=== PATIENT | female | born 1995 | race Caucasian/White ===

== ENCOUNTER 2023-05-08 10:59 | Emergency (ER) | payer BC, SELFPAY ==
[2023-05-08 11:05] VITALS: BP 136/83; PULSE 80; RESP 18; TEMP 36.9; O2SAT 99; BMI 62.6
--- NOTE | 2023-05-08 11:10 | EX.ED.UPPERE ---
HPI History of Present Illness Chief Complaint: Upper Extremity Injury PFS PFS Medical History no medical history Home Medications doxycycline monohydrate 100 mg capsule 100 mg PO BID 5 days #10 CAPSULES 05/08/23 [Rx Last Taken Unknown] Allergy/AdvReac Type Severity Reaction Status Date / Time amoxicillin Allergy Intermediate Rash Verified 05/08/23 11:05 azithromycin Allergy Intermediate Rash Verified 05/08/23 11:05 cefdinir Allergy Intermediate Rash Verified 05/08/23 11:05 cephalexin [From Keflex] Allergy Intermediate Rash Verified 05/08/23 11:05 clarithromycin Allergy Intermediate Rash Verified 05/08/23 11:05 clindamycin Allergy Intermediate Rash Verified 05/08/23 11:05 erythromycin base Allergy Intermediate Rash Verified 05/08/23 11:05 Penicillins Allergy Intermediate Rash Verified 05/08/23 11:05 sulfamethoxazole Allergy Intermediate Rash Verified 05/08/23 11:05 [From Bactrim] tetracycline Allergy Intermediate Rash Verified 05/08/23 11:05 trimethoprim [From Bactrim] Allergy Intermediate Rash Verified 05/08/23 11:05 Surgical History no surgical history EXAM Physical Exam Const Vital Signs: 05/08/23 11:05 Temperature 98.4 F Temperature Source Temporal Pulse Rate 80 Respiratory Rate 18 Blood Pressure 136/83 H Blood Pressure Mean 100 Pulse Ox 99 Oxygen Delivery Method Room Air MDM MDM MDM Narrative Medical decision making narrative: HISTORY OF PRESENT ILLNESS: 27-year-old female here with concern for injury to her right middle and ring finger. States she dropped a 300 pound wrench on the involved areas no severe right third digit swelling and pain. REVIEW OF SYSTEMS: Pertinent positives: Hand pain, numbness Pertinent negatives: Arm pain, wrist pain, elbow pain PHYSICAL EXAM: Nursing triage notes reviewed, Vital signs reviewed Constitutional: please see mdm Extremities: There is diffuse swelling over the tip of the third digit of the right hand. There is no obvious open fracture, nail is intact there is no subungual hematoma. There is exquisite tenderness palpation over the distal tip of the right third digit. There is intact flexion of the profundus and superficialis tendons although flexion of the finger is limited secondary to pain and swelling. Neuro: Intact 5/5 strength with ok sign (median), intact finger abduction (ulnar) intact wrist extension (radial n). Intact sensation in the radial, ulnar, and median nerve distributions. Skin: No evidence of open fracture MEDICAL DECISION MAKING: Chief Complaint: Ring and middle finger pain External records reviewed: No recent advanced imaging of the involved extremity Factors affecting care: none Social determinants of health: none History obtained from others: none Consults: none [facility] Narrative: The patient was hemodynamically stable, afebrile, nontoxic-appearing. Right upper extremity is neurovascularly intact. I considered the following differential diagnosis: Finger fracture, finger contusion ALL IMAGES (IF OBTAINED) HAVE BEEN PERSONALLY REVIEWED AND INTERPRETED BY MYSELF. I obtained an x-ray (read and reviewed by myself) of the right hand which showed evidence of fractures of the distal third and fourth phalanx. Applied finger splint. Gave strict return precautions. Gave Prophylactic antibiotics given soled appearance of the patient's fingers, redness and concern for development of infection. The patient and/or family, caregivers express understanding. The patient and/or family, caregivers agrees with the plan. Shared decision making: I will have a discussion with the patient and or visitors regarding risk/benefits of further testing or admission. They will be made aware of of the risk/benefits inherent in this decision they will be given the opportunity to voice understanding. Total critical care time today provided was at least 0 minutes. This excludes separately billable procedures. Critical care time (if documented) is secondary to the patient having high probability of clinically significant/life threatening deterioration in the patient's condition which required my urgent intervention. Impression: 1. Distal third and fourth phalanx fractures and right hand Dispo: Discharge Discharge Plan Triage Chief Complaint: Upper Extremity Injury ED Provider: Justin Estrella Dx/Rx/DC Orders Instructions: ED Fracture, Finger, Closed Prescriptions: New doxycycline monohydrate 100 mg capsule 100 mg PO BID 5 Days Qty: 10 0RF Stand Alone Forms: ED Work / School Excuse Primary Care Provider: Care Physician,No Primary Referrals: Alberto Coelho MD [Med Staff - Lehr Attendant] - Activity Restrictions/Additional Instructions: Thank you for trusting us with your care today! Please take Tylenol (2 pills, 650 mg), ibuprofen (2 pills, 400 mg) every 6 hours as needed for pain and fever control. Please use ice for further pain control. Please return to the emergency department if your symptoms change or worsen. Specifically develop redness, increasing pain, white-yellow discharge. Please follow with your primary care physician for further outpatient evaluation and management. Disposition Disposition: Home, Self Care
--- NOTE | 2023-05-08 11:31 | RAD_ITS ---
STUDY: X-RAY - RIGHT HAND, ATTENTION THIRD FINGER REASON FOR EXAM: Female, 27 years old. Right 3rd digit pain TECHNIQUE: 3 view(s) of the finger were obtained. COMPARISON: None. FINDINGS: There are acute, comminuted, minimally displaced fractures in the distal david of the distal third and fourth phalanges with soft tissue swelling. No other demonstrated fractures, joint spaces well-preserved. RAD/Finger(s) Min 2 Views IMPRESSION: Acute minimally displaced fractures in the distal david of the distal third and fourth phalanges with soft tissue swelling Electronically Signed: Jr Khoury MD at 11:59 EST ,
[2023-05-08] MEDS: Doxycycline 100 MG CAPSULE PO (12:14)
[2023-05-08] MEDS: oxyCODONE 5 MG Tablet PO (12:15)
--- NOTE | 2023-05-08 12:15 | ED.RN ---
bar scanner not working after multi attempts of redocking scanner.
== END 2023-05-08 12:17 | disposition home or self-care (01) ==
PROVIDERS: Emergency Provider Emergency Medicine; Visit Provider Emergency Medicine
DX: S62.632A Displaced fracture of distal phalanx of right middle finger, initial encounter for closed fracture (principal); S62.634A Displaced fracture of distal phalanx of right ring finger, initial encounter for closed fracture; X58.XXXA Exposure to other specified factors, initial encounter
CPT/HCPCS: 73140; 99282

== ENCOUNTER 2023-06-30 22:48 | Emergency (ER) | payer BC, SELFPAY ==
[2023-06-30 22:49] VITALS: BP 141/92; PULSE 77; RESP 18; TEMP 35.7; O2SAT 99
--- NOTE | 2023-06-30 23:10 | CT_ITS ---
INDICATION: fall, head trauma EXAMINATION: CT Head or Brain W/O Contrast Injection TECHNIQUE: Multiple axial images were obtained of the head without intravenous contrast. A radiation dose optimization technique was used for this scan. IV Contrast dosage and agent: None. COMPARISON: None FINDINGS: BRAIN PARENCHYMA: No intra- or extra-axial hemorrhage. No evidence of acute major territorial infarct. No intracranial mass or mass effect. There is preservation of the álvarez/white matter interface. Posterior fossa structures are unremarkable. CSF SPACES: Appropriate for age. No hydrocephalus. Basal cisterns are patent. CALVARIUM, SKULL BASE, PARANASAL SINUSES AND MASTOID AIR CELLS: Calvarium is intact. Scattered sinus mucosal thickening. Mastoid air cells are well-pneumatized. ORBITS: No acute findings. CT/Brain/Head without Contrast IMPRESSION: No evidence of acute intracranial abnormality. Electronically Signed: Jamey Mathur MD at 0:30 EST ,
--- NOTE | 2023-06-30 23:12 | EX.ED.GENINJ ---
HPI History of Present Illness Chief Complaint: Head Injury [facility] Medical History (Updated 06/30/23 @ 23:36 by Eli Nash) Mastitis Home Medications NK 06/30/23 [History Last Taken Unknown] Allergy/AdvReac Type Severity Reaction Status Date / Time amoxicillin Allergy Intermediate Rash Verified 06/30/23 22:49 azithromycin Allergy Intermediate Rash Verified 06/30/23 22:49 cefdinir Allergy Intermediate Rash Verified 06/30/23 22:49 cephalexin [From Keflex] Allergy Intermediate Rash Verified 06/30/23 22:49 clarithromycin Allergy Intermediate Rash Verified 06/30/23 22:49 clindamycin Allergy Intermediate Rash Verified 06/30/23 22:49 erythromycin base Allergy Intermediate Rash Verified 06/30/23 22:49 Penicillins Allergy Intermediate Rash Verified 06/30/23 22:49 sulfamethoxazole Allergy Intermediate Rash Verified 06/30/23 22:49 [From Bactrim] tetracycline Allergy Intermediate Rash Verified 06/30/23 22:49 trimethoprim [From Bactrim] Allergy Intermediate Rash Verified 06/30/23 22:49 Surgical History (Updated 06/30/23 @ 23:36 by Eli Nash) H/O breast surgery History of appendectomy History of cholecystectomy Social History Smoking Status: Never smoker EXAM Physical Exam Const Vital Signs: 06/30/23 22:49 06/30/23 23:36 Temperature 96.2 F L Temperature Source Temporal Pulse Rate 77 Respiratory Rate 18 Respiratory Effort Normal Respiratory Depth Normal Respiratory Pattern Normal Blood Pressure 141/92 H Blood Pressure Mean 108 Pulse Ox 99 Oxygen Delivery Method Room Air Room Air MDM MDM MDM Narrative Medical decision making narrative: HISTORY OF PRESENT ILLNESS: 27-year-old female here with head injury. Notes she stepped off a toy truck while at work falling onto black eyes . She fell backwards hitting her head. She notes loss of consciousness and 1 episode of vomiting prior to arrival. Denies blood thinners. Denies any other injuries to the neck, shoulders upper extremities, chest, abdomen pelvis, lower extremities. REVIEW OF SYSTEMS: Pertinent positives: Headache, vomiting Pertinent negatives: Neck pain, headache PHYSICAL EXAM: Nursing triage notes reviewed, Vital signs reviewed Primary Survey Airway: Intact Breathing: Bilateral breath sounds Circulation: Palpable bilateral femorals, Palpable bilateral radial, Palpable bilateral DP and Palpable bilateral PT Disability / Spine precautions GCS Score: Eye Openin Verbal Response: 5 Motor Response: 6 Secondary Survey Constitutional: Please see MDM Head: Atraumatic, Midface stable, NO jaw malocclusion, No Cephalohematoma, and No Lacerations noted Eye: Pupils equal round and reactive to light, Extraocular muscles intact and No periorbital ecchymosis or stepoff, no evidence of entrapment ENT: Oropharynx clear, no lacerations, no hemotympanum, no raccoon eyes or lovell sign Cervical spine / Neck: No cervical spine bony tenderness, crepitance, or stepoff deformity Trachea midline Lungs: Clear to auscultation, No asymmetric rise and No crepitus, no flail chest Cardiac: Regular rate and rhythm and No murmurs Abdomen: Soft, Nontender and No rebound Pelvis: Pelvis stable to compression : No evidence of genital injury Back: No midline bony tenderness to thoracic/lumbar/sacral spines Neuro: Alert and oriented x3, neuro exam at baseline, cranial nerves II through XII are intact. No pain with extraocular muscle movement. There is negative test of skew. 5 of 5 strength in upper and lower extremities in flexion extension. Intact sensation to light touch in upper and lower extremity dermatomes. No truncal or extremity ataxia. No dysdiadochokinesia. Normal gait. 2+ reflexes in upper and lower extremities. No meningeal signs. Negative Babinski. NIH of 0. Extremities: NO gross Deformities Psych: Normal affect Nursing triage notes reviewed, Vital signs reviewed MEDICAL DECISION MAKING: Chief Complaint: Head injury External records reviewed: No recent advanced imaging of the head or neck Factors affecting care: none, no blood thinners [facility] Narrative: Patient was hemodynamically stable, afebrile, nontoxic-appearing. I considered the following differential diagnosis: ICH, skull fracture, concussion ALL IMAGES (IF OBTAINED) HAVE BEEN PERSONALLY REVIEWED AND INTERPRETED BY MYSELF. CT scan obtained and is pending at this time. Patient's case was signed out to overnight physician pending CT scan. The patient and/or family, caregivers express understanding. The patient and/or family, caregivers agrees with the plan. Shared decision making: I will have a discussion with the patient and or visitors regarding risk/benefits of further testing or admission. They will be made aware of of the risk/benefits inherent in this decision they will be given the opportunity to voice understanding. Total critical care time today provided was at least 0 minutes. This excludes separately billable procedures. Critical care time (if documented) is secondary to the patient having high probability of clinically significant/life threatening deterioration in the patient's condition which required my urgent intervention. Impression: 1. 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 Next of kin: [place] law dictates a PRIORITY LIST for identifying legal decision-maker/legal next of kin in the following order (LNOK): 1st: The patient?s legal guardian, if any 2nd: The patient's spouse (if status is questionable, consult Risk Management) 3rd: The patient?s adult child(matilde) (majority, if multiple children) 4th: The patient?s parents 5th: The patient?s adult siblings (majority, if multiple children siblings)
[2023-06-30] MEDS: Ondansetron ODT 4 MG Tablet PO (23:32)
== END 2023-07-01 00:56 | disposition home or self-care (01) ==
PROVIDERS: Emergency Provider Emergency Medicine; Visit Provider Emergency Medicine
DX: S09.90XA Unspecified injury of head, initial encounter (principal); W00.2XXA Other fall from one level to another due to ice and snow, initial encounter; Y92.812 Truck as the place of occurrence of the external cause; Y93.89 Activity, other specified; Y99.0 Civilian activity done for income or pay
CPT/HCPCS: 70450; 99282

== ENCOUNTER 2023-07-03 16:47 | Emergency (ER) | payer BC, SELFPAY ==
[2023-07-03 16:48] VITALS: BP 137/93; PULSE 94; RESP 18; TEMP 36.2; O2SAT 98
[2023-07-03 17:54] VITALS: BMI 64.3
--- NOTE | 2023-07-03 18:21 | EX.ED.VIS.HA ---
HPI History of Present Illness Chief Complaint: Headache Narrative Narrative: 27-year-old female with headache. She had a closed head injury on the and was seen had a CT scan. She continues to have nausea, headache, photophobia. She is diagnosed with concussion. Denies any new injury. She is not projectile vomiting. Her symptoms are not progressing or getting worse or just persistent. 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 [facility] Medical History Mastitis Home Medications ondansetron 4 mg disintegrating tablet 4 mg PO Q8H PRN PRN Nausea #10 tabs 07/01/23 [Rx Last Taken Unknown] diphenhydramine HCl 25 mg capsule (Benadryl) 25 mg PO Q8H PRN headache #10 caps 07/03/23 [Rx Last Taken Unknown] ibuprofen 600 mg tablet 600 mg PO Q6H PRN PRN pain #20 TABLETS 07/03/23 [Rx Last Taken Unknown] metoclopramide HCl 10 mg tablet (Reglan) 10 mg PO Q8H PRN PRN headache #10 tabs 07/03/23 [Rx Last Taken Unknown] Allergy/AdvReac Type Severity Reaction Status Date / Time amoxicillin Allergy Intermediate Rash Verified 07/03/23 16:48 azithromycin Allergy Intermediate Rash Verified 07/03/23 16:48 cefdinir Allergy Intermediate Rash Verified 07/03/23 16:48 cephalexin [From Keflex] Allergy Intermediate Rash Verified 07/03/23 16:48 clarithromycin Allergy Intermediate Rash Verified 07/03/23 16:48 clindamycin Allergy Intermediate Rash Verified 07/03/23 16:48 erythromycin base Allergy Intermediate Rash Verified 07/03/23 16:48 Penicillins Allergy Intermediate Rash Verified 07/03/23 16:48 sulfamethoxazole Allergy Intermediate Rash Verified 07/03/23 16:48 [From Bactrim] tetracycline Allergy Intermediate Rash Verified 07/03/23 16:48 trimethoprim [From Bactrim] Allergy Intermediate Rash Verified 07/03/23 16:48 Surgical History H/O breast surgery History of appendectomy History of cholecystectomy Social History Smoking Status: Never smoker ROS ROS ED Constitutional Constitutional ED: Denies chills, fever(s) or sweats Eyes Eyes: Reports other Details: Double vision ; Denies blurry vision or change in vision ENT ENT ED: Denies ear pain or sore throat Cardiovascular Cardiovascular: Denies chest pain, palpitations or racing heartbeat Respiratory/Chest Respiratory/Chest: Denies cough, dyspnea or sputum Gastrointestinal Gastrointestinal: Reports nausea; Denies abdominal pain, constipation, diarrhea or vomiting Genitourinary Genitourinary ED: Denies dysuria, hematuria or urinary frequency Musculoskeletal Musculoskeletal: Denies arthralgias, myalgias or neck pain Integumentary Denies abscess, Abrasions or rash Neurologic Neurologic: Reports headache(s); Denies paresthesias or weakness Psychiatric Psychiatric: Denies anxiety, depression, suicidal ideation or suicidal thoughts Endocrine Endocrinology: Denies polydipsia or polyuria EXAM Physical Exam Const Vital Signs: 07/03/23 16:48 Temperature 97.2 F L Temperature Source Temporal Pulse Rate 94 Respiratory Rate 18 Blood Pressure 137/93 H Blood Pressure Mean 107 Pulse Ox 98 Oxygen Delivery Method Room Air Positive well nourished General Appearance ED: NAD; Negative for pallor HEENT Reports normocephalic atraumatic Eyes PERRL and EOMs intact bilaterally General Eye ED: Negative for pale conjunctiva Neck no lymphadenopathy Resp normal respiratory effort Cardio regular rate and regular rhythm Extremity normal to inspection Neuro oriented x3 and CN's II-XII intact bilaterally Sensorium / Orientation: awake and alert Speech: speech normal Motor Exam: strength 5/5 throughout Psych mental status grossly normal Skin General Skin Exam: Negative for jaundice or pallor MDM MDM MDM Narrative Medical decision making narrative: Patient presenting with continued headache and double vision after close head injury. She is diagnosed with a caution. No focal neurologic deficits or lateralizing signs or symptoms on exam. She is requesting something for headache control. She is given Reglan, Benadryl, Toradol, IV fluids. I do not believe she needs any blood work or repeat imaging. If her headache pain is improved we will send her home with some medications to help with this and she is given a work note for work. Reevaluation at 7:30 PM patient is doing well. Her headache is improved. She request a work note for today and tomorrow which was provided. She is sent home with Reglan ibuprofen for headache. Return precautions discussed. Impression: 1. Concussion 2. Headache Discharge Plan Triage Chief Complaint: Headache ED Provider: Von Okeefe Dx/Rx/DC Orders Instructions: ED Concussion, ED Headache Unspecified Prescriptions: New metoclopramide HCl [Reglan] 10 mg tablet 10 mg PO Q8H PRN PRN (Reason: headache) Qty: 10 0RF diphenhydramine HCl [Benadryl] 25 mg capsule 25 mg PO Q8H PRN (Reason: headache) Qty: 10 0RF ibuprofen 600 mg tablet 600 mg PO Q6H PRN PRN (Reason: pain) Qty: 20 0RF No Action ondansetron 4 mg tablet,disintegrating 4 mg PO Q8H PRN PRN (Reason: Nausea) Qty: 10 0RF Stand Alone Forms: ED Work / School Excuse Primary Care Provider: Care Physician,No Primary Referrals: Mariaelena Lr MD [Med Staff - Lamination Builder] - 3-5 Days Care Physician,No Primary [Primary Care Provider] - Disposition Disposition: Home, Self Care Capacity Legal Medical Technologist Generalist Reflex Medical hold order details:: IF a medical hold is selected below, a suggested order for a MEDICAL HOLD will reflex upon signing the document. Next of kin: [place] law dictates a PRIORITY LIST for identifying legal decision-maker/legal next of kin in the following order (LNOK): 1st: The patient?s legal guardian, if any 2nd: The patient's spouse (if status is questionable, consult Risk Management) 3rd: The patient?s adult child(matilde) (majority, if multiple children) 4th: The patient?s parents 5th: The patient?s adult siblings (majority, if multiple children siblings)
[2023-07-03] MEDS: Metoclopramide 10 MG/2 ML Vial IV (18:31)
[2023-07-03] MEDS: DiphenhydrAMINE 50 MG/ML Syringe 25 MG IV (18:31)
[2023-07-03] MEDS: Ketorolac 15 MG/ML Vial IV (18:31)
[2023-07-03] MEDS: 0.9% Normal Saline (1000mL) 1,000 ML 999 ML IV (18:31)
== END 2023-07-03 19:38 | disposition home or self-care (01) ==
PROVIDERS: Emergency Provider Student in an Organized Health Care Education/Training Program; Visit Provider Student in an Organized Health Care Education/Training Program
DX: S06.0X0A Concussion without loss of consciousness, initial encounter (principal); X58.XXXA Exposure to other specified factors, initial encounter
CPT/HCPCS: 96361; 96374; 96375; 99283

== ENCOUNTER 2023-10-22 10:43 | Emergency (ER) | payer BC, SELFPAY ==
[2023-10-22 10:45] VITALS: BP 136/75; PULSE 81; RESP 16; TEMP 36.6; O2SAT 98; BMI 63.8
--- NOTE | 2023-10-22 11:04 | MRI_ITS ---
STUDY: MRI LUMBAR SPINE WITHOUT CONTRAST REASON FOR EXAM: Female, 27 years old. low back pain and right leg weakness TECHNIQUE: Standardized fat and water weighted pulse sequences were obtained in the sagittal and axial planes. COMPARISON: None FINDINGS: T12-L1: Normal endplates. Normal disc height, hydration and morphology. Normal bilateral facet joints. Normal central canal and bilateral lateral recesses. Normal bilateral intervertebral neural foramina. Normal lumbar lordosis. There is no substantial scoliosis. Normal conus medullaris that terminates at T12 L1-2: Normal endplates. Normal disc height, hydration and morphology. Normal bilateral facet joints. Normal central canal and bilateral lateral recesses. Normal bilateral intervertebral neural foramina. L2-3: Normal endplates. Normal disc height, hydration and morphology. Normal bilateral facet joints. Normal central canal and bilateral lateral recesses. Normal bilateral intervertebral neural foramina. L3-4: Normal endplates. Normal disc height, hydration and morphology. Normal bilateral facet joints. Normal central canal and bilateral lateral recesses. Normal bilateral intervertebral neural foramina. L4-5: Normal endplates. Normal disc height, hydration and morphology. Normal bilateral facet joints. Normal central canal and bilateral lateral recesses. Normal bilateral intervertebral neural foramina. L5-S1: Normal endplates. Normal disc height, mild desiccation and normal morphology. Normal bilateral facet joints. Normal central canal and bilateral lateral recesses. Normal bilateral intervertebral neural foramina. Normal visualized sacral ala. Normal visualized paraspinous soft tissue structures. MRI/Spine Lumbar (Routine) IMPRESSION: Early disc degeneration at L5-S1 but no evidence for focal disc protrusion or spinal stenosis No acute fracture or other significant bony pathology Electronically Signed: Floyd Mckeon MD at 16:15 EDT ,
--- NOTE | 2023-10-22 11:08 | ED.VIS.BACK ---
HPI History of Present Illness Chief Complaint: Lower Extremity Injury Detail of Chief Complaint: Low back pain with weakness in her right leg. Informant: patient Onset/Context/Timing Onset: Month(s) Context: Gradual Onset Injury: bending and fall Timing: Continuous Quality: Sharp Location: Lumbar Current Severity: Moderate Maximum Severity: Moderate Worsened by: improves with Movement, Ambulation and Bending Relieved by: Nothing Associated Symptoms Associated Symptoms: Numbness and - (Right leg weakness) Narrative Narrative: 27-year-old female states that since a fall about 2 months ago where she sustained a concussion and a negative CT she has had pain in her lower back with numbness to her right leg and intermittently gets neck pain with numbness to both hands. She had a history of a prior slipped disc before. Has never had back surgery. Was treated with steroids at that time. She denies any fever. She denies any bowel or bladder incontinence. Says she has weakness in her right leg. She does not have a primary care physician. She has not had this evaluated recently. Prior similar symptoms: Yes Recent Illness/Hospitalization: No [facility] Medical History Mastitis Home Medications ondansetron 4 mg disintegrating tablet 4 mg PO Q8H PRN PRN Nausea #10 tabs 07/01/23 [Rx Last Taken Unknown] diphenhydramine HCl 25 mg capsule (Benadryl) 25 mg PO Q8H PRN headache #10 caps 07/03/23 [Rx Last Taken Unknown] ibuprofen 600 mg tablet 600 mg PO Q6H PRN PRN pain #20 TABLETS 07/03/23 [Rx Last Taken Unknown] metoclopramide HCl 10 mg tablet (Reglan) 10 mg PO Q8H PRN PRN headache #10 tabs 07/03/23 [Rx Last Taken Unknown] Allergy/AdvReac Type Severity Reaction Status Date / Time amoxicillin Allergy Intermediate Rash Verified 10/22/23 10:44 azithromycin Allergy Intermediate Rash Verified 10/22/23 10:44 cefdinir Allergy Intermediate Rash Verified 10/22/23 10:44 cephalexin [From Keflex] Allergy Intermediate Rash Verified 10/22/23 10:44 clarithromycin Allergy Intermediate Rash Verified 10/22/23 10:44 clindamycin Allergy Intermediate Rash Verified 10/22/23 10:44 erythromycin base Allergy Intermediate Rash Verified 10/22/23 10:44 sulfamethoxazole Allergy Intermediate Rash Verified 10/22/23 10:44 [From Bactrim] tetracycline Allergy Intermediate Rash Verified 10/22/23 10:44 trimethoprim [From Bactrim] Allergy Intermediate Rash Verified 10/22/23 10:44 Surgical History H/O breast surgery History of appendectomy History of cholecystectomy Social History Smoking Status: Never smoker ROS ROS ED ROS Narrative Back and neck pain. Right leg weakness. Review of Systems ROS Unobtainable: Denies due to encephalopathy Constitutional Constitutional ED: Denies chills or fever(s) Eyes Eyes: Denies blurry vision ENT ENT ED: Denies ear pain Cardiovascular Cardiovascular: Denies chest pain or palpitations Respiratory/Chest Respiratory/Chest: Denies dyspnea Gastrointestinal Gastrointestinal: Denies abdominal pain or constipation Genitourinary Genitourinary ED: Denies dysuria or hematuria Musculoskeletal Musculoskeletal: Reports back pain and neck pain; Denies arthralgias or myalgias Integumentary Denies abscess or Abrasions Neurologic Neurologic: Denies headache(s) Psychiatric Psychiatric: Denies anxiety Endocrine Endocrinology: Denies cold intolerance Hematologic/Lymphatic Hematologic/Lymphatic: Denies easy bleeding, easy bruising or lymphadenopathy Allergic/Immunologic Allergic/Immunologic ED: Denies mouth swelling, tongue swelling or urticaria EXAM Physical Exam Narrative Exam Narrative: 27-year-old female no acute distress sitting upright in bed. Vital signs stable afebrile. H EENT exam unremarkable. Neck nontender. Trachea midline. Lungs clear to auscultation bilaterally. Heart regular rhythm no murmur. Abdomen soft nontender. She has equal and symmetrical machine i coremaker strength. Negative Tinel and Phalen sign. She has normal strength and sensation in the left leg. She has sensation in the right leg but has decreased strength in the right leg with decreased dorsiflexion. Decree strength lifting her right leg. No cauda equina. No saddle anesthesia. She has tenderness in her lumbar spine area. She is awake and alert. Answer questions following commands. Const Vital Signs: 10/22/23 10:45 Temperature 97.8 F Temperature Source Temporal Pulse Rate 81 Respiratory Rate 16 Blood Pressure 136/75 H Blood Pressure Mean 95 Pulse Ox 98 Oxygen Delivery Method Room Air Positive well nourished and well developed; Negative for cachectic, contractures or unkempt General Appearance ED: well developed and NAD; Negative for unkempt, cachectic or contractures Nutritional Appearance: Negative for cachectic HEENT Reports moist mucous membranes; Denies dry mucous membranes Negative for trauma or tenderness Mouth ED: No dry mucous membranes Mouth: No dry mucous membranes Eyes PERRL and EOMs intact bilaterally Neck no lymphadenopathy, supple and no JVD General: Negative for tenderness Thyroid: Negative for other Resp normal respiratory effort and clear to auscultation bilaterally Effort and Inspection: Negative for pain with movement Auscultation: Negative for rales, rhonchi, wheezes or diminished lung sounds Cardio regular rate, regular rhythm, S1 normal heart sound, S2 normal heart sound and no murmurs Palpation: Negative for palpable S3 Rate: Negative for bradycardia or tachycardic Rhythm: Negative for abnormal rhythm Bruits: Negative for other GI normal to inspection, nondistended, normoactive bowel sounds, soft to palpation, non-tender, non-distended and no masses Inspection: Negative for abdominal distention Palpation: Negative for tender, guarding, mass, pulsatile mass or rebound tenderness present Back/Spine normal to inspection; Negative for no thoracic nor lumbar tenderness Back/Spine Narrative: Mild lumbar tenderness. Extremity no clubbing, cyanosis or edema; Negative for normal to inspection Extremity Narrative: Right leg weakness. Positive sensation. No cauda equina. General Extremety ED: Negative for edema or tenderness General Extremity: Negative for edema Neuro oriented x3 and no sensory deficits noted Neuro Narrative: Right leg weakness. Sensorium / Orientation: alert; Negative for confused, lethargic or stuporous Motor Exam: strength abnormal; Negative for strength 5/5 throughout Psych Appearance: Negative for unkempt Attitude: No agitated and No other Mood & Affect: Negative for depressed, sad or tearful Skin no rashes or lesions noted and no wounds General Skin Exam: Negative for jaundice Lesions: No lesion noted Rashes: No rashes noted Trauma: Negative for abrasion or puncture Wounds: Negative for wounds noted MDM MDM MDM Narrative Medical decision making narrative: 27-year-old female is having leg weakness for 2 weeks. Has had a history of a prior slipped disc. Has never had back surgery. She is decree strength in her right leg today on exam. She has normal sensation. We are obtaining an MRI of her lumbar spine. There is currently somebody in MRI and they have a case to do after that patient will be done around 230. I discussed that with her. She is willing to stay. Repeat exam at 4 PM patient returned from MRI. Awaiting the read. Patient be turned over to the afternoon physician to get the MRI results and make final disposition. At this time she is not having leg numbness. She has good dorsi and plantarflexion. And she is able lift her leg off the bed better than she was when she arrived. She has not needed any pain medication. I have already spoken to Dr. Rangel of orthopedic spine. He will follow-up as an outpatient pending MRI results. History & Record Review Discussion w/independent historian: Patient Discharge Plan Triage Chief Complaint: Lower Extremity Injury ED Provider: Edi Marquis Dx/Rx/DC Orders Clinical Impression: History of degenerative disc disease, Back pain Prescriptions: No Action ondansetron 4 mg tablet,disintegrating 4 mg PO Q8H PRN PRN (Reason: Nausea) Qty: 10 0RF metoclopramide HCl [Reglan] 10 mg tablet 10 mg PO Q8H PRN PRN (Reason: headache) Qty: 10 0RF diphenhydramine HCl [Benadryl] 25 mg capsule 25 mg PO Q8H PRN (Reason: headache) Qty: 10 0RF ibuprofen 600 mg tablet 600 mg PO Q6H PRN PRN (Reason: pain) Qty: 20 0RF Primary Care Provider: Care Physician,No Primary Referrals: Care Physician,No Primary [Primary Care Provider] - Floyd Rangel, [Med Staff - Active Staff] - As soon as possible (Call his office morning and he should be get you in in the next few days or no later than early next week.)
[2023-10-22] MEDS: predniSONE 20 MG Tablet 40 MG PO (16:33)
== END 2023-10-22 16:36 | disposition home or self-care (01) ==
PROVIDERS: Emergency Provider Emergency Medicine; Visit Provider Emergency Medicine
DX: M54.50 Low back pain, unspecified (principal); Z90.49 Acquired absence of other specified parts of digestive tract; Z87.39 Personal history of other diseases of the musculoskeletal system and connective tissue
CPT/HCPCS: 72148; 99282